=== PATIENT | male | born 1965 ===

== ENCOUNTER → 2024-08-06 14:47 | Outpatient (REF) | payer BC, SELFPAY ==
[2024-08-06 17:11] LABS: INR 1.03; PT 13.8 Sec (11.4-14.6)
[2024-08-06 17:16] LABS: ALT (SGPT) 31 U/L (0-50); AST (SGOT) 35 U/L (17-59); Alkaline Phosphatase 85 U/L (38-126); Blood Urea Nitrogen 16 mg/dl (9-20); Calcium 9.6 mg/dl (8.4-10.2); Carbon Dioxide 29 mmol/L (22-30); Chloride 104 mmol/L (98-107); Glucose 99 mg/dl (70-99); Potassium 4.6 mmol/L (3.5-5.1); Sodium 141 mmol/L (135-145); Total Bilirubin 0.6 mg/dl (0.2-1.3); Total Protein 7.5 g/dl (6.3-8.2); eGFR > 60.00
[2024-08-06 17:36] LABS: % Basophils 1.1 % (0-2); % Eosinophils 2.2 % (0-6); % Immature Granulocytes 0.2 % (0-0.5); % Lymphocytes 32.1 % (20.5-51.1); % Monocytes 12.8 % (1.7-9.3); % Neutrophils 51.6 % (42.2-75.2); Absolute Basophils 0.1 10^3/uL (0-0.2); Absolute Eosinophils 0.3 10^3/uL (0-0.7); Absolute Lymphocytes 4.3 10^3/uL (1.2-3.4); Absolute Monocytes 1.7 10^3/uL (0.1-0.6); Absolute Neutrophils 6.9 10^3/uL (1.4-6.5); Hematocrit 40.9 % (39.0-52.0); Hemoglobin 14.2 g/dL (13.0-18.0); Mean Corp Hgb Conc. 34.7 g/dL (33.0-37.0); Mean Corpuscular Volume 95.1 fL (80.0-94.0); Nucleated Red Blood Cells % 0 % (-); Red Cell Dist. Width 12.8 % (11.5-14.5); White Blood Cell Count 13.3 10^3/uL (4.8-10.8)
[2024-08-06 17:55] LABS: Hepatitis B Surface Antigen Negative (Negative)
[2024-08-06 18:09] LABS: AFP Male/Tumor Marker 4.41 ng/ml
[2024-08-06 18:14] LABS: Hepatitis B Core Ab, Total Negative (Negative); Hepatitis B Surface Antibody Negative; Hepatitis C Antibody Reactive (Negative)
== END ==
LOC: REG 14:47
PROVIDERS: ATTENDING PHYSICIAN Orthopaedic Surgery; FAMILY PHYSICIAN Family Medicine; OTHER PHYSICIAN Internal Medicine Gastroenterology
DX: Z86.19 Personal history of other infectious and parasitic diseases (principal); Z12.11 Encounter for screening for malignant neoplasm of colon; Z01.818 Encounter for other preprocedural examination
CPT/HCPCS: 36415; 80053; 82105; 85025; 85610; 86704; 86706; 86803; 87340; 87522; 87902; 93005

== ENCOUNTER → 2024-08-26 17:21 | Emergency (ER) | payer OTHER, SELFPAY ==
[2024-08-26 17:26] VITALS: BP 142/107
[2024-08-26 17:33] VITALS: BP 157/94
[2024-08-26 17:45] VITALS: BP 179/145
[2024-08-26] MEDS: ATIVAN 2 MG IV (17:49)
[2024-08-26] MEDS: NSS 500 IV (17:50)
[2024-08-26 18:06] VITALS: BP 176/92
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
[2024-08-26] MEDS: ATIVAN 1 MG IV (18:07)
[2024-08-26 18:08] LABS: Hematocrit 37.5 % (39.0-52.0); Hemoglobin 13.4 g/dL (13.0-18.0); Mean Corp Hgb Conc. 35.7 g/dL (33.0-37.0); Mean Corpuscular Hgb 33.1 pg (27.0-31.0); Mean Corpuscular Volume 92.6 fL (80.0-94.0); Mean Platelet Volume 11.9 fL (7.4-10.4); Platelet Count 185 10^3/uL (130-400); Red Blood Cell Count 4.05 10^6/uL (4.70-6.10); Red Cell Dist. Width 12.5 % (11.5-14.5); White Blood Cell Count 25.3 10^3/uL (4.8-10.8)
[2024-08-26 18:13] LABS: Glucose - Point of Care 136 mg/dl (70-99)
[2024-08-26 18:18] LABS: AST (SGOT) 53 U/L (17-59); Acetaminophen < 10 ug/ml (10-30); Albumin 4.5 g/dl (3.5-5.0); Alkaline Phosphatase 130 U/L (38-126); Blood Urea Nitrogen 23 mg/dl (9-20); Carbon Dioxide 24 mmol/L (22-30); Chloride 109 mmol/L (98-107); Glucose 145 mg/dl (70-99); Potassium 3.9 mmol/L (3.5-5.1); Salicylate < 1.0 mg/dl (2.0-20.0); Sodium 143 mmol/L (135-145); Total Bilirubin 1.5 mg/dl (0.2-1.3); Total Protein 8.4 g/dl (6.3-8.2); eGFR > 60.00
[2024-08-26 18:19] LABS: Alcohol None Detected
[2024-08-26 18:27] LABS: ALT (SGPT) 39 U/L (0-50)
--- NOTE | 2024-08-26 19:09 | EDRN ---
Report received, patient back from CT hooked back up to monitor introduced myself to family
== END ==
LOC: EMR 17:21
PROVIDERS: Emergency Medicine
DX: R41.82 Altered mental status, unspecified (principal); R45.1 Restlessness and agitation
CPT/HCPCS: 99284; 96374; 96361; 70450; 80053; 80143; 80179; 82077; 82962; 83735; 85027; 93005

== ENCOUNTER 2024-08-26 22:06 | Inpatient (IN) | payer BC, SELFPAY ==
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
--- NOTE | 2024-08-26 21:14 | HPS.HSE ---
Family Physician
-
Family Physician: Kamryn Arreguin
Chief Complaint
-
Confusion
History of Present Illness
Patient is a 59 y/o male past medical history of hypertension, hepatitis C and IV drug abuse who presents with confusion. Patient is unable to provide any history. Patient's provides additional history. Patient and his were attending a
wedding yesterday about 3-4 hours away so they spent last night in a hotel. found patient on the floor in the middle of night with notable confusion. Patient continued with confusion today while they were coming home. Due to persistent
confusion she brought him to the emergency department. notes patient has been very tremulous, sneezing and yawning frequently. She notes this seems similar to when he has gone throughout withdrawal in past except he is much more confused.
notes patient hides his drug use and will deny using when confronted.
Medical History
Past Medical History
Past Medical History: Reports Other
Additional Past Medical History:
Essential Hypertension
GERD
Hepatitis C
IV Drug Abuse
Past Surgical History: Reports Other
Additional Past Surgical History:
Splenectomy
Multiple Fracture Repairs
Social History
Tobacco: Smoker
Alcohol: None
Drug: IVDA (Fentanyl )
Family History
Family History: Not pertinent
Allergies / Home Medications
Allergies reflects when Allergies were last updated in [facility]
Home Medications with original date entered in [facility]
Allergy/Medication List:
Allergies
Allergy/AdvReac Type Severity Reaction Status Date / Time
No Known Allergies Allergy Unverified 08/22/24 09:18
Home Medications
amlodipine 10 mg tablet 10 mg PO DAILY 08/26/24
benazepril 40 mg tablet 40 mg PO DAILY 08/26/24
sumatriptan succinate 100 mg tablet 100 mg PO DAILYPRN PRN Migraine Headache 08/26/24
zolpidem 10 mg tablet 10 mg PO HSPRN PRN Insomnia 08/26/24
Review of Systems
-
Unable to obtain full review of systems at this time due to: Acuity
Physical Exam
Vital Signs
Vital Signs
Pulse Resp
97 13
08/26/24 20:23 08/26/24 20:23
Temp 98.2
Pulse 96
BP 142/107
Resp 16
Physical Exam
General: Well Developed, Well Nourished, Appears in Distress (Very tremulous) and Other (Frequent Yawning)
HEENT: NormoCephalic, Anicteric and Atraumatic
Respiratory: Clear and Non Labored Respirations
Cardiac: S1/S2, Regular Rhythm, Tachycardia and Murmur (2/6 Systolic Murmur)
GI: Soft and Non Tender
Rectal: Deferred by Provider
Musculoskeletal: No Clubbing, No Cyanosis and No Edema
Skin: Warm and Dry
Neuro: Other (Follows some commands; Appears to move all four extremities; Does not answer questions)
Laboratory Results
-
WBC 25.3
Hgb 13.4
Hct 37.5
Plt 185
Na 143
K 2.9
Cl 109
CO2 24
BUN 23
Cr 0.7
Glu 145
Mag 2.0
T Bili 1.5
AST 53
ALT 39
Alk Nils 130
Alcohol Non-detected
Head CT:
No acute intracranial abnormality
Data Reviewed
-
CT Scan: Report Reviewed by me
Lab Data: Labs Reviewed by me
Impression/Plan
-
Multi-Factorial TME secondary to suspected opioid withdrawal and possible sepsis
-Check urine drug screen
-Continue opioid withdrawal protocol
-Check CXR
-Check Blood Cultures
-Check Lactic Acid level
-Continue Vancomycin and Zosyn
Essential Hypertension
-Hold all oral meds
Hepatitis C
- notes patient has been treated previously but recent blood work showed high viral load and they were arranging for treatment again
DVT proph: Lovenox
Code Status: Full Code
[2024-08-26 21:23] VITALS: BMI 20.6
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
[2024-08-26 22:11] VITALS: BP 153/90
[2024-08-26] MEDS: FLUSH (NSS) 1 FLUSH IV (22:13)
[2024-08-26] MEDS: ZOSYN 50 IV (22:14)
--- NOTE | 2024-08-26 22:15 | EDRN ---
Prior to giving patient oral tylenol, made sure patient was able to swallow water without difficulty.
[2024-08-26] MEDS: TYLENOL 1000 MG PO (22:28)
[2024-08-26] MEDS: VANCOCIN 530 MG IV (22:31)
[2024-08-26] MEDS: NSS 1000 IV (22:31)
[2024-08-26 22:32] LABS: Lactic Acid 1.3 mmol/L (0.7-2.0)
[2024-08-26 22:33] LABS: Amphetamines Negative (Negative); Barbiturates Negative (Negative); Benzodiazepines Positive (Negative); Buprenorphine Positive (Negative); Cocaine Negative (Negative); Marijuana Positive (Negative); Methadone Negative (Negative); Methamphetamines Negative (Negative); Opiates Positive (Negative); Phencyclidine Negative (Negative); Tricyclic Antidepressants Negative (Negative)
[2024-08-26] MEDS: SUBUTEX 8 MG SL (22:36)
[2024-08-26 22:57] LABS: Fentanyl, Urine Positive (Negative)
[2024-08-26 23:00] VITALS: BP 154/108
[2024-08-26 23:05] LABS: Urine Albumin 2+ (Neg - Trace); Urine Bilirubin Negative (Negative); Urine Character Clear (Clear); Urine Color Amber; Urine Glucose Negative (Negative); Urine Ketone 1+ (Negative); Urine Leukocyte Negative (Negative); Urine Nitrite Negative (Negative); Urine Occult Blood 1+ (Negative); Urine Urobilinogen Negative (Neg - 1+)
[2024-08-26 23:13] LABS: Urine Hyaline Cast 0-2 /LPF (0-2); Urine Mucus Moderate; Urine Squamous Cell 0-2 /LPF (Few)
[2024-08-26 23:14] LABS: Urine Bacteria Few (Negative); Urine Red Blood Cell 0-2 /HPF (0-2); Urine White Cell 0-2 /HPF (0-5)
[2024-08-27] VITALS (54 sets, daily range): BP systolic 150–192; BP diastolic 82–112; BMI 20.9; BMI 20.7
[2024-08-27] MEDS: ZANAFLEX 2 MG PO (00:07)
[2024-08-27] MEDS: SUBUTEX 8 MG SL ×2 (00:07→01:40)
[2024-08-27] MEDS: TORADOL 10 MG IV (00:08)
--- NOTE | 2024-08-27 01:00 | PTCARENOTE ---
Received verbal report from ESTEBAN Breaux. Pt arrived to IMU via stretcher with at bedside. Sinus arrhythmia on monitor. Satting 98% on RA. NS infusing @ 125 mL/hr. Pt oriented only to self and provides occasional one word answers. assisted
with answering admission questions. Subutex administered for COWS of 23 (see MAR and worklist). Admission complete, assessment and vitals as documented. Hygiene completed. Pt resting in bed with bed alarm on.
[2024-08-27] MEDS: BENADRYL 6.25 MG IV (02:49)
[2024-08-27] MEDS: NSS (PRESERVATIVE FREE) 0.5 ML IV ×2 (03:22→04:26)
[2024-08-27] MEDS: ATIVAN 1 MG IV ×3 (03:22→20:45)
--- NOTE | 2024-08-27 03:51 | PTCARENOTE ---
Pt agitated and repeatedly attempts to get out of bed and take everything off. KIM Puga notified and Rx for restraints received as a protective intervention. COWS remains >8 after two doses of subutex (see worklist and JUN). Blood pressure is
173/95. KIM Puga made aware and Rx received for clonidine and Ativan.
[2024-08-27] MEDS: CATAPRES 0.1 MG PO ×2 (04:04→20:05)
[2024-08-27] MEDS: ATIVAN 2 MG IV (05:13)
[2024-08-27] MEDS: NSS (PRESERVATIVE FREE) 1 ML IV (05:13)
--- NOTE | 2024-08-27 05:41 | W.PN.UPDATE ---
Update Note
Progress Note Update
Patient is agitated, restless with increased of tremors, trying to get out of bed frequently. Received Tizanidine, clonidine PRN, frequent dose of Ativan and not effective. Cows >24.
Will transfer the patient to ICU for possible Precedex administration. Discussed with the tree wrapper.
[2024-08-27 05:59] LABS: Blood Urea Nitrogen 23 mg/dl (9-20); Calcium 9.1 mg/dl (8.4-10.2); Carbon Dioxide 22 mmol/L (22-30); Chloride 114 mmol/L (98-107); Estimated Creatinine Clearance 108 ml/min; Glucose 119 mg/dl (70-99); Magnesium 1.9 mg/dl (1.6-2.3); Potassium 3.9 mmol/L (3.5-5.1); Sodium 145 mmol/L (135-145); eGFR > 60.00
--- NOTE | 2024-08-27 06:14 | PTCARENOTE ---
Verbal report provided to ESTEBAN Ball. Pt transferred to ICU in bed. All belongings with patient.
--- NOTE | 2024-08-27 06:28 | PTCARENOTE ---
Received pt from IMU to ICU [id number]. Pt agitated, restless, uncooperative. Unable to interact with staff. Garbled a few words. COWS = 28. Wrist restraints maintained. ROSITA Hassan aware of behavior. Precedex gtt started and 10mg IV valium ordered and
administered. Bladder scanned for 249 ml. Condom cath placed.
[2024-08-27] MEDS: VALIUM INJECTION 10 MG IV (06:31)
[2024-08-27] MEDS: PRECEDEX 100 IV ×3 (06:32→19:14)
[2024-08-27 06:51] LABS: Glucose - Point of Care 124 mg/dl (70-99)
[2024-08-27] MEDS: NSS 1000 IV (07:15)
--- NOTE | 2024-08-27 07:26 | PHA.VAN.IN ---
Assessment
- Assessment
Renal Function: Appears similar to baseline
Maximum Temperature: 101.0 08/26 23:41
AUC Dosing Plan
- Dosing Variables
Dosing Weight (kg): 69
Dosing CrCl (ml/min): 100
Vd coefficient (L/kg): 0.7
- Empiric Dosing
Initial / Loading Dose: 1500 mg - 2230 on 08/26/24
Maintenance Regimen: 750 mg q8h - first dose now ( 0800)
Estimated AUC (mcg*h/mL): 556
Estimated Peak (mcg*h/mL): 30.9
Estimated Trough (mcg/ml): 16.7
Estimated Half Life (H): 7.9
- Monitoring
No levels ordered at this time: consider levels when pt nears ss
would expect increased clearance due to hx of IVDA
Pharmacokinetics Vancomycin I
- -
Patient Age: 59
Patient Sex: Male
Vancomycin Day #: 1
Indication: Other
Requesting Provider: Williey
Height / Weight:
Height 6 ft
Actual Weight 69.1 kg
Pertinent Past Medical History: IVDA (fentanyl); Hep C
- Vital Signs / Lab Results
Temp Pulse Resp BP Pulse Ox
99.1 F 96 26 162/88 94
08/27/24 05:25 08/27/24 04:04 08/27/24 04:02 08/27/24 04:04 08/27/24 06:20
Lab Results - Hematology
08/27/24
05:09
WBC Cancelled
Lab Results - Chemistry
08/27/24 08/27/24
05:09 06:00
BUN 23 H
Creatinine 0.7
Estimated Creat Clear 108
Albumin Cancelled
08/26/24 08/27/24
21:59 01:00
Lactic Acid 1.3 Cancelled
Lab Results - Urine
08/26/24
21:59
Urine Nitrite (Reflex) Negative
Leukocyte Esterase Rfl Negative
Urine WBC (Reflex) 0-2
Ur Squamous Epith Cells 0-2
Urine Bacteria (Reflex) Few A
--- NOTE | 2024-08-27 08:00 | PTCARENOTE ---
Pt rec'd in report from night RN; remains slightly restless and uncooperative. Garbled, soft spoken, minimal interaction with nursing, current COWS score 11. Soft restraints in place for safety. Precedex gtt infusing -titrated per protocol...see
MAR for flowsheet. IVF infusing as ordered. Additional IV site placed by CHRISTI RN Min, labs drawn and sent. ECG done. updated by phone, plan discussed in rounds with care team. See flowsheet for meds and assessment.
--- NOTE | 2024-08-27 08:24 | W.PN.HOSP.TC ---
Today's Communication/Plan
-
Total Critical Care Time__45___ minutes. I was immediately available to the patient and staff. I personally examined, reviewed labs, diagnostic images/reports, interpretations, treatment plans, discussed patient care with other providers and
family or caregivers (if patient is unable to make decisions), entered orders as appropriate and documented the medical record.
Assessment / Plan
Assessment / Plan
Impression:
Toxic metabolic encephalopathy secondary to opioid withdrawal.
SIRS secondary to above.
Concern for sepsis (febrile on admission)
Interstitial infiltrate
Conditions prior to admission,
Opiate use disorder (reported IV fentanyl)
Hepatitis C untreated.
Essential hypertension
Plan:
Toxic metabolic encephalopathy secondary to opioid withdrawal.
Polysubstance abuse suspected.
IVDA Fentanyl
Urine drug screen positive for opiates, buprenorphine, fentanyl, benzodiazepine, marijuana
Transferred to ICU.
Initiated on opioid withdrawal protocol with Subutex
Precedex drip
Aggressive hydration
Concern for sepsis versus SIRS secondary to opioid withdrawal
IVDA
Febrile on admission with
Chest x-ray with mild pulmonary congestion without focal infiltrate.
UA unremarkable.
Blood cultures pending
Empiric antibiotics vancomycin, Zosyn initiated upon admission. Continue pending above data
Pulmonary congestion on chest x-ray.
Stable respiratory status
EKG without ischemia
No known history of cardiac disease including CAD/CHF
EKG pending
Echo pending
Check pressure check BNP
Monitor closely while on IV fluids
Hepatitis C untreated
LFT pending
Ammonia level pending
Essential hypertension
Preadmission regimen including amlodipine and BenzePrO holding acutely
Insomnia
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
Anticipated Discharge: > 48 hours
Subjective/Interval History
-
Date of Service: August 27, 2024
Objective Data
-
Labs:
Laboratory Results
08/27/24 08/27/24 08/27/24
05:09 05:46 07:34
WBC Cancelled Pending
Hgb Cancelled Pending
Hct Cancelled Pending
Plt Count Cancelled Pending
PT Pending
INR Pending
APTT Pending
Sodium 145
Potassium 3.9
Chloride 114 H
Carbon Dioxide 22
BUN 23 H
Creatinine 0.7
Glucose 119 H
Calcium 9.1
Total Bilirubin Pending
AST Pending
ALT Pending
Alkaline Phosphatase Pending
Vital Signs:
Vital Signs
Temp Pulse Resp BP Pulse Ox
98.9 F 96 26 162/88 94
08/27/24 08:09 08/27/24 04:04 08/27/24 04:02 08/27/24 04:04 08/27/24 06:20
I&O
08/26/24 08/27/24 08/28/24
06:59 06:59 06:59
Output Total 700 / 700
Balance -700 / -700
Physical Exam
-
General: Well Developed, No Apparent Distress and Sweats
HEENT: Normocephalic, Atraumatic and Moist Mucous Membranes
Respiratory: Clear to Auscultation
Cardiac: Regular Rhythm and S1/S2; Negative Murmur, Rub or Gallop
GI: Soft, Nontender, Nondistended and Normal Bowel Sounds; Negative Organomegaly
Rectal: Deferred by Provider
Musculoskeletal: No Clubbing, No Cyanosis and No Edema
Skin: Negative Rash
Neuro: Sedated and Nonfocal/Grossly Intact
--- NOTE | 2024-08-27 08:36 | CON.INTV ---
Consultation
Consultation Request
Date/Time Consultation Requested: 08/27/2024
Date/Time Consultation Performed: 08/27/2024
Medical History
-
Chief Complaint: Opioid withdrawal with associated confusion and agitation
History of Present Illness:
59-year-old male past med history of hypertension, hep C, IV drug abuse, longstanding fentanyl presented to [place] emergency department after attending a wedding where he was noted to be found on the floor in the middle of the night with
confusion. Patient was confused on the drive home and has persistent confusion prompted visit to the ED. notes patient was tremulous, sneezing and yawning frequently. She notes he had had episodes of withdrawal in the past however he is more
confused during this episode. notes patient will hide his drug use and deny using when confronted. He was admitted placed on COWS protocol with as needed medications. Patient was initiated on broad-spectrum antibiotics for concern for
potential endocarditis, ID consult placed. No sequelae of endocarditis, patient did have tachycardia and tachypnea, hypertensive, febrile on admission. Labs pending at time of admission. No source known, chest x-ray normal, urinalysis no signs of
infection, currently afebrile. Urine positive for opiates, buprenorphine, fentanyl, benzodiazepine, marijuana. He had an episode overnight where he was agitated trying to get out of bed he was unable to be controlled with medications per COWS
protocol, and he was transferred to the ICU for Precedex infusion.
Past Medical History
Past Medical History: HTN and Other (IV drug abuse, longstanding IV fentanyl. Hep C)
Social History
Tobacco: Smoker
Alcohol: None
Drug: IVDA (Fentanyl)
Personal:
Allergies / Home Medications
Allergies
Allergy/AdvReac Type Severity Reaction Status Date / Time
No Known Allergies Allergy Unverified 08/22/24 09:18
Home Medications
�Medication �Instructions �Recorded �Confirmed �Last Taken �Type
amlodipine 10 mg tablet 10 mg PO DAILY 08/26/24 08/26/24 Unknown History
benazepril 40 mg tablet 40 mg PO DAILY 08/26/24 08/26/24 Unknown History
sumatriptan succinate 100 mg tablet 100 mg PO DAILYPRN PRN Migraine 08/26/24 08/26/24 Unknown History
Headache
zolpidem 10 mg tablet 10 mg PO HSPRN PRN Insomnia 08/26/24 08/26/24 Unknown History
Review of Systems
-
Unable to Obtain full review of systems at this time due to: Other (Patient withdrawing, not participating in review of systems. Is alert but not oriented. Incoherent speech.)
Vitals / Labs / Diagnostic Testing
Vital Signs
Temp Pulse Resp BP Pulse Ox
98.9 F 96 26 162/88 94
08/27/24 08:09 08/27/24 04:04 08/27/24 04:02 08/27/24 04:04 08/27/24 06:20
Lab Data
08/27/24 05:09
Diagnostic Testing:
Physical Exam
-
Cardiovascular: S1/S2, Regular Rhythm (Tachycardic) and Murmur (Negative)
Respiratory: Clear
Neurology: Awake and Other (Not alert, not oriented, incoherent speech.)
Skin: Other (Track polk and fibrotic scar tissue present on bilateral lower and upper extremities.)
Assessment
-
Assessment:
59-year-old male past medical history of IV drug abuse with fentanyl, hep C, hypertension presents to [place] for confusion, agitation and drug withdrawal. Patient was placed on COWS protocol which was not sufficient and he required Precedex for
light sedation and subsequently was transferred to the ICU. Was started on antibiotics for concern of endocarditis.
Plan:
#Opiate withdrawal
#IV drug abuse
#Acute toxic metabolic encephalopathy
Likely altered mental status is secondary to opiate withdrawal. Patient has bilateral track polk on upper and lower extremities.
UDS positive for opiates, buprenorphine, fentanyl, benzodiazepine, THC
Currently patient is alert but not oriented, incomprehensible speech. Not participating in interview and attempting to get up out of bed
Electrolytes are within normal limits, magnesium within normal limits, ammonia within normal limit
Was placed on COWS protocol with as needed medications, these were not sufficient to control his withdrawal/agitation and he required transfer to the ICU for Precedex infusion
Added as needed IV Ativan 0.5 every 4 hours for agitation
Continue Precedex as needed, down titrate as tolerated
Continue as needed medications on COWS protocol
Added IV Tylenol for pain
Added standing IV Dilaudid and as needed IV Dilaudid
Continue buprenorphine scheduled and as needed
Continue with four-port restraints as patient is attempting to get up and is not oriented
Continue IV fluids for now, will stop IV fluids later tonight
Currently holding p.o. medications as patient is n.p.o., will restart once n.p.o. status lifted
#SIRS criteria without source
Patient was started on broad-spectrum IV vancomycin and Zosyn for potential endocarditis as he uses IV drugs
Infection not ruled out
White count returned 29.6, blood cultures x 2 pending, MRSA screen pending
No sequelae of endocarditis present
Echocardiogram pending, EKG showed no ischemia
Patient meets SIRS criteria with tachycardia and tachypnea however he is withdrawing from opiates, no source noted on chest x-ray, urinalysis negative for markers of infection, patient was febrile on admission, now afebrile. Suspicion for infection
is low.
ID consulted on admission
Will defer antibiotic management to infectious disease
#Hypertension
Patient is on home amlodipine, currently being held as patient is n.p.o.
Hypertension likely exacerbated by opioid withdrawal, patient also tachycardic
Added IV labetalol 5 every 4 hours as needed for SBP greater than 160 and heart rate greater than 90
Restart home antihypertensive once patient is no longer n.p.o.
CODE STATUS: full code
DVT prophylaxis: Subcu Lovenox 40
Diet: N.p.o.
[2024-08-27 08:45] LABS: ALT (SGPT) 31 U/L (0-50); AST (SGOT) 55 U/L (17-59); Albumin 3.9 g/dl (3.5-5.0); Alkaline Phosphatase 108 U/L (38-126); Direct Bilirubin 0.3 mg/dl (0.0-0.4); Total Bilirubin 1.3 mg/dl (0.2-1.3); Total Protein 7.2 g/dl (6.3-8.2)
[2024-08-27 09:10] LABS: Hematocrit 34.2 % (39.0-52.0); Mean Corp Hgb Conc. 35.1 g/dL (33.0-37.0); Mean Corpuscular Hgb 32.7 pg (27.0-31.0); Mean Corpuscular Volume 93.2 fL (80.0-94.0); Mean Platelet Volume 11.7 fL (7.4-10.4); Platelet Count 164 10^3/uL (130-400); Red Blood Cell Count 3.67 10^6/uL (4.70-6.10); Red Cell Dist. Width 12.9 % (11.5-14.5); White Blood Cell Count 29.6 10^3/uL (4.8-10.8)
[2024-08-27 09:28] LABS: Ammonia 12 umol/L (9-30)
[2024-08-27 09:41] LABS: NT-proBNP 6700 pg/ml
[2024-08-27] MEDS: VANCOCIN 150 IV (10:12)
--- NOTE | 2024-08-27 10:22 | CON.ID ---
Consultation
-
Date/Time Consultation Requested: August 26, 20248
Date/Time Consultation Performed: August 27, 2024 1025
Requesting Provider: Anni Villalpando PA-C
Performing Provider: Dr. Mary Isbell
Reason for Consultation: Sepsis, IV drug use, asplenia
Chief Complaint / Past History
Chief Complaint
Confusion
History of Present Illness
History is obtained from review of medical records since patient currently unable to provide a full meaningful history. He is a 59-year-old male IV drug user, active hepatitis C, history of splenectomy who was brought to the ER August 26 due to change
in mental status. Patient and his were away for the holiday weekend. His found the patient on the hotel floor in the middle of the night. Patient was very confused. His drove back and brought him to the ER. On the way back,
noted patient with tremors, frequent sneezing and yawning. In the ER temperature 101, white count 29.6 urine drug screen positive fentanyl, buprenorphine, opiates, marijuana, benzodiazepine. Chest x-ray without pneumonia; mild vascular congestion.
BNP 6700. UA negative. Blood cultures pending. Patient continues to have tremors. He is currently in restraints. Patient agitated. Patient unable to answer my questions.
Past History
Additional Past Medical History:
Hypertension
IV drug user
Active hepatitis C, previously treated, with reinfecion
Splenectomy
Migraine headaches
BPH
Left knee osteoarthritis
Insomnia
Right clavicle ORIF
Allergy History:
No Known Allergies Allergy (Unverified 08/22/24 09:18)
Medications Reviewed: Yes
Current Antibiotics:
Vancomycin
Zosyn
Social History
Tobacco: Smoker
Alcohol: None
Drug: IVDA (Fentanyl)
Personal:
Living: With Family
Review of Systems
Review of Systems
Unable to obtain due to change in mental status.
Vital Signs
Temp Pulse Resp BP Pulse Ox
98.9 F 88 19 180/92 98
08/27/24 08:09 08/27/24 10:00 08/27/24 10:00 08/27/24 10:00 08/27/24 10:00
Selected Entries
08/26/24
22:11 08/26/24
23:41
Temp 101.0 F H 100.4 F H
Physical Exam
Physical Exam
Constitutional: Acutely Ill and Other (Diaphoretic)
Head: Other (No frontal or max or sinus tenderness)
Eyes: No Conjunctival Hemorrhage and Sclera Anicteric
Lymph Nodes: Negative Lymphadenopathy
Cardiovascular: Regular Rate and S1/S2
Pulmonary: Clear
Gastrointestinal: Soft, Non Tender, Non Distended and Normal Bowel Sounds
Genito-Urinary: Negative CVA Tenderness
Extremities: Negative Edema
Musculoskeletal: Negative Joint Swelling or Joint Effusion
Skin: Negative Jaundice
Neurological: Tremors and Other
Psychological: Agitated
Lab / Diagnostic Study Results
08/27/24 08:57
08/27/24 05:09
PT Cancelled 08/27/24 08:54
INR Cancelled 08/27/24 08:54
Lactic Acid Cancelled 08/27/24 01:00
Ur Squamous Epith Cells 0-2 /LPF (Few) 08/26/24 21:59
Microbiology Results
Micro:
08/27/24 05:09 MRSA Screen - Pending
Nose
08/26/24 21:59 Blood Culture - Pending
Blood/Venous
08/26/24 21:59 Blood Culture - Pending
Blood/Venous
08/26/24 CXR: No focal consolidation, pleural effusion, or pneumothorax. Prominence of the pulmonary vascular markings. The cardiomediastinal silhouette is normal. ORIF of the right clavicle. Surgical clips project over the left upper quadrant.
Assessment / Plan
# Fever
# Leukocytosis
# IVDU
# Fentanyl Withdrawal syndrome
# History of splenectomy
# Chronic Hep C (reinfection)
- Follow blood cultures.
- ECHO pending
- DC Vanco
- Continue Zosyn for now pending cx data.
- Trend temps/WBC
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
Hypertension
IV drug user
Active hepatitis C, previously treated, with reinfecion
Splenectomy
Migraine headaches
BPH
Left knee osteoarthritis
Insomnia
Right clavicle ORIF
[2024-08-27 10:45] LABS: INR 1.28; PT 16.3 Sec (11.4-14.6)
[2024-08-27 10:46] LABS: APTT 28.8 Sec (23.4-35.0)
[2024-08-27] MEDS: OFIRMEV 100 IV (12:26)
[2024-08-27] MEDS: DILAUDID 0.5 MG IV ×3 (12:27→23:55)
[2024-08-27] MEDS: TRANDATE 5 MG IV ×3 (13:09→22:04)
--- NOTE | 2024-08-27 13:54 | CM ---
business system manager reviewed patient's chart and met with patient and patient is extremely sleepy difficult to understand, patient reports that he lives with his spouse, and he works, patient is independent with adl's and ambulation, no dme, patient
drives, asked patient about drug use and possible treatment options and patient unable to engage in any meaningful discussion on treatment due to withdrawal. Plan is to review with patient possible treatment options through [facility] when patient is
more alert.
PCP: Kamryn Arreguin
Pharmacy; [facility].
Plan; To follow with eboni progress and make a referral to [facility], when patient is more alert.
--- NOTE | 2024-08-27 16:22 | PTCARENOTE ---
Echo completed. PRN Labetalol given per parameters for continued HTN after scheduled Dilaudid and Tylenol. Pt voiding via condom cath, safe environment maintained. Family remains at bedside.
[2024-08-27] MEDS: OFIRMEV IV ×2 (17:03→23:12)
[2024-08-27] MEDS: LOVENOX 40 MG SC (17:16)
--- NOTE | 2024-08-27 17:23 | PTCARENOTE ---
PRN Labetalol again administered for HTN per parameters, see MAR> Pt resting calmly. PTs declines Ofirmev administration d/t pt hx of liver disease. notified.
--- NOTE | 2024-08-27 20:22 | PTCARENOTE ---
Rec'd pt with 4 point soft restraints, pt oriented to person, place, reoriented to time, denies pain, precedex gtt at 0.8 priya, COWS 5, + pulses, no edema, skin warm/dry, RA, lungs clear, sat 97, + bowel sounds, no bm, abd soft, no n/v, casper po meds,
330 condom cath intact, voiding yellow urine
[2024-08-27] MEDS: NORVASC 10 MG PO (20:46)
[2024-08-27] MEDS: ZESTRIL 40 MG PO (20:47)
--- NOTE | 2024-08-27 20:51 | PTCARENOTE ---
ativan 1mg iv given for agitation, norvasc zestril started for BP
--- NOTE | 2024-08-27 22:06 | PTCARENOTE ---
labetolol 5mg iv given for bp
[2024-08-28] VITALS (34 sets, daily range): BP systolic 138–185; BP diastolic 70–109; PULSE 77–84; O2SAT 98; BMI 21.0
--- NOTE | 2024-08-28 | PTCARENOTE ---
sys reviewed, CHG bath done, linens changed
[2024-08-28] MEDS: ZANAFLEX 2 MG PO ×2 (00:32→08:46)
--- NOTE | 2024-08-28 00:32 | PTCARENOTE ---
zanaflex 2mg po given for restlessness
[2024-08-28] MEDS: PRECEDEX 100 IV ×2 (01:08→09:26)
[2024-08-28] MEDS: ATIVAN 1 MG IV (02:21)
--- NOTE | 2024-08-28 02:22 | PTCARENOTE ---
ativan 1mg iv given for restlessness
[2024-08-28 03:47] LABS: Hematocrit 33.8 % (39.0-52.0); Hemoglobin 11.9 g/dL (13.0-18.0); Mean Corp Hgb Conc. 35.2 g/dL (33.0-37.0); Mean Corpuscular Hgb 33.2 pg (27.0-31.0); Mean Corpuscular Volume 94.4 fL (80.0-94.0); Mean Platelet Volume 11.7 fL (7.4-10.4); Red Blood Cell Count 3.58 10^6/uL (4.70-6.10); Red Cell Dist. Width 13.2 % (11.5-14.5); White Blood Cell Count 29.2 10^3/uL (4.8-10.8)
--- NOTE | 2024-08-28 04:09 | PTCARENOTE ---
sys reviewed, dozing on & off
[2024-08-28 04:29] LABS: ALT (SGPT) 29 U/L (0-50); AST (SGOT) 46 U/L (17-59); Albumin 3.5 g/dl (3.5-5.0); Alkaline Phosphatase 103 U/L (38-126); Blood Urea Nitrogen 26 mg/dl (9-20); Calcium 8.7 mg/dl (8.4-10.2); Carbon Dioxide 24 mmol/L (22-30); Chloride 117 mmol/L (98-107); Estimated Creatinine Clearance > 125 ml/min; Glucose 123 mg/dl (70-99); Potassium 3.4 mmol/L (3.5-5.1); Sodium 147 mmol/L (135-145); Total Protein 6.5 g/dl (6.3-8.2); eGFR > 60.00
[2024-08-28 04:48] LABS: Absolute Neutrophils -Man Diff 25.1 10^3/uL (1.4-6.5); Band Neutrophils 0 % (0-3); Lymphocytes 8 % (20-51); Monocytes 6 % (2-9); Normal RBC Morphology No; Platelets Checked Yes; Segmented Neutrophils 86 % (42-75); Total Cells Counted 100
[2024-08-28 04:51] LABS: Platelet Count 189 10^3/uL (130-400); Smudge Cells Occasional
[2024-08-28 04:52] LABS: Anisocytosis 1+; Macrocytosis 1+
[2024-08-28] MEDS: TRANDATE 5 MG IV ×2 (05:06→22:41)
[2024-08-28] MEDS: DILAUDID 0.5 MG IV (05:06)
[2024-08-28] MEDS: KCL 40 MEQ PO ×2 (05:06→18:36)
--- NOTE | 2024-08-28 05:10 | PTCARENOTE ---
labetolol 5mg iv given for bp, 40 kcl po given as ordered
[2024-08-28] MEDS: OFIRMEV IV (05:15)
[2024-08-28] MEDS: MIRALAX 17 GRAMS TUBE (07:17)
[2024-08-28] MEDS: ZESTRIL 40 MG PO (07:17)
[2024-08-28] MEDS: NORVASC 10 MG PO (07:17)
--- NOTE | 2024-08-28 08:41 | W.PN.INTV ---
Today's Communication / Plan
Recommendations
Potential downgrade to IMU/telemetry
Continue down titration of Precedex as tolerated
Continue as needed medications per COWS protocol and for opiate withdrawal
Initiate D5 water
Decrease lorazepam dose
Discontinue scheduled Dilaudid
PT/OT, speech eval
Assessment
-
Assessment:
59-year-old male past medical history of IV drug abuse with fentanyl, hep C, hypertension presents to [place] for confusion, agitation and drug withdrawal. Patient was placed on COWS protocol which was not sufficient and he required Precedex for
light sedation and subsequently was transferred to the ICU. Was started on antibiotics for concern of endocarditis.
Plan:
#Opiate withdrawal
#IV drug abuse
#Acute toxic metabolic encephalopathy
Likely altered mental status is secondary to opiate withdrawal. Patient has bilateral track polk on upper and lower extremities.
UDS positive for opiates, buprenorphine, fentanyl, benzodiazepine, THC
Patient alert but not oriented however improved from yesterday. He is no longer agitated and no longer attempting to get up out of bed. sleeping comfortably.
Ammonia within normal limit
Was placed on COWS protocol with as needed medications, these were not sufficient to control his withdrawal/agitation and he required transfer to the ICU for Precedex infusion
Precedex has been discontinued
Decrease IV lorazepam dose
Continue as needed medications on COWS protocol
Continue IV Tylenol for pain
Discontinued standing IV Dilaudid and continue as needed IV Dilaudid
Continue buprenorphine scheduled and as needed
Continue with 2 point restraints
IV fluids discontinued
Currently holding p.o. medications as patient is n.p.o., will restart once n.p.o. status lifted
Speech and swallow, PT OT ordered
Potential downgrade to IMU/telemetry if remains stable off Precedex
#Irregular heart rate
New irregular heart rate heard on exam and confirmed on monitor
Previous EKG had regular rhythm with PVCs
Potassium 3.4, magnesium within normal limits yesterday, added on magnesium lab today
P waves are present, rate mid to low 60s
Urgent EKG further evaluation
Echocardiogram yesterday showed normal systolic function and no regional wall abnormality. No vegetation noted on TTE
Daily CMP to monitor electrolytes
#Prolonged QTc
QTc returned 500 this morning
Patient is on multiple medications that can prolong QTC for his opiate withdrawal
Potassium 3.4 this morning status post repletion, magnesium within normal limits yesterday
Added on serum magnesium
Serial EKG in a.m. to monitor QTc
#Hypernatremia
Sodium returned 147 this morning, up from 145
Suspect component of dehydration, IV fluids were discontinued yesterday
Initiated D5 water 75 mL scheduled
#Hypokalemia
Potassium returned 3.4 this morning
Overnight covering provider ordered 40 mEq potassium repletion
Recheck CMP in a.m.
#SIRS criteria without source
Patient was started on broad-spectrum IV vancomycin and Zosyn for potential endocarditis as he uses IV drugs and is status post splenectomy
Infection not ruled out, blood cultures no growth in 24 hours, final culture pending. MRSA screen negative
White count still elevated 29.2, suspect this is reactive
No sequelae of endocarditis present
Echocardiogram returned no vegetation, no regional wall motion abnormality, normal systolic function
Patient meets SIRS criteria with tachycardia and tachypnea however he is withdrawing from opiates, no source noted on chest x-ray, urinalysis negative for markers of infection, patient was febrile on admission, now afebrile. Suspicion for infection
is low.
ID consulted on admission, discontinued vancomycin, continuing on Zosyn until blood cultures return. Appreciate recommendations. Defer antibiotic management to ID
#Hypertension
Patient is on home amlodipine, currently being held as patient is n.p.o.
Hypertension likely exacerbated by opioid withdrawal, patient also tachycardic
Added IV labetalol 5 every 4 hours as needed for SBP greater than 160 and heart rate greater than 90
Restart home antihypertensive once patient is no longer n.p.o.
CODE STATUS: full code
DVT prophylaxis: Subcu Lovenox 40
Diet: N.p.o.
Subjective Dataa
Subjective Data
Date of Service:
Date of Service: August 28, 2024
Chief Complaint: Hospital Carrier Follow Up
Subjective:
Nursing reports no events overnight, has been receiving all of his as needed medications but is stable. Precedex is currently being down titrated however he is still on it. Patient is somewhat somnolent, will respond to you but is unsure of why he
is in the hospital. When questioned he responds he is here as he is awaiting a total knee replacement. Patient slept through remainder of review of systems/interview.
Review of Systems
General: Other (Patient did not answer/did not want to answer review of systems)
Objective Data
Data Reviewed
Vital Signs / I&O / Oxygen:
Vital Signs
Temp Pulse Resp BP Pulse Ox
99 F 64 25 158/95 95
08/28/24 03:53 08/28/24 08:00 08/28/24 08:00 08/28/24 08:00 08/28/24 08:00
Intake and Output
08/27/24 08/28/24 08/29/24
06:59 06:59 06:59
Intake Total 1212.3 / 1226.1 267.6 / 267.6
Output Total 700 / 700 895 / 895
Balance -700 / -700 317.3 / 331.1 267.6 / 267.6
SaO2 95
Physical Exam
General: Comfortable
Cardiovascular: S1-S2, Irregular Rhythm (Irregular murmur heard on exam, confirmed on monitor. P waves present.) and Murmur (Negative)
Respiratory: Clear
Neurology: Other (Alert but not oriented to place.)
Skin: Other (Track polk present bilateral upper and lower extremities)
Labs/Micro/Reports
Lab Data
08/28/24 03:25
08/28/24 03:25
Laboratory Results
08/27/24 08/27/24
08:54 10:23
PT Cancelled 16.3 H
INR Cancelled 1.28
APTT Cancelled 28.8
Microbiology
08/27/24 05:09 Nose MRSA Screen - Final
No Methicillin Resistant Staphylococcus aureus isolated.
08/26/24 21:59 Blood/Venous Blood Culture - Preliminary
No Growth in 24 hours- Final report to follow
08/26/24 21:59 Blood/Venous Blood Culture - Preliminary
No Growth in 24 hours- Final report to follow
[2024-08-28] MEDS: SUBUTEX 16 MG SL (08:49)
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
--- NOTE | 2024-08-28 13:00 | PTCARENOTE ---
Pt impulsive but no longer agitated. Restraints removed. Precedex off. All other assessments unchanged.
[2024-08-28] MEDS: CATAPRES 0.1 MG PO ×2 (14:29→20:32)
[2024-08-28] MEDS: D5W 1000 IV (14:45)
[2024-08-28] MEDS: DILAUDID 1 MG IV (14:49)
--- NOTE | 2024-08-28 16:00 | DOWNTIME ---
There was a [facility] Client Weaving Loom Operator Downtime on 08/28/2024 from 1230 to 08/28/2024 at 1550. Downtime documentation of patient's care, including medication administrations, has been reconciled in the electronic record per guidelines. Refer to the
patient's paper chart under the miscellaneous tab to see printed paper medication records and downtime forms.
--- NOTE | 2024-08-28 16:21 | W.PN.HOSP.TC ---
Today's Communication/Plan
-
Precedex
Continue Subutex
COWS protocol
Monitor off of antibiotic
Discontinue Ativan
Discontinue scheduled Dilaudid
Assessment / Plan
Assessment / Plan
NAD, responding with eyes closed, on Precedex drip
Scleral Anicteric
MMM
No JVD
CTABL
RRR, S1/S2
Soft, NT, ND, BS+
Warm, Dry
AAOx3
Calm
Impression:
Toxic metabolic encephalopathy secondary to opioid withdrawal.
SIRS secondary to above.
Concern for sepsis (febrile on admission)
Interstitial infiltrate
Conditions prior to admission,
Opiate use disorder (reported IV fentanyl)
Hepatitis C untreated.
Essential hypertension
Plan:
Toxic metabolic encephalopathy secondary to opioid withdrawal.
Polysubstance abuse suspected.
IVDA Fentanyl
Urine drug screen positive for opiates, buprenorphine, fentanyl, benzodiazepine, marijuana
Transferred to ICU.
Initiated on opioid withdrawal protocol with Subutex
Precedex drip
Aggressive hydration
Concern for sepsis versus SIRS secondary to opioid withdrawal
IVDA
Febrile on admission with
Chest x-ray with mild pulmonary congestion without focal infiltrate.
UA unremarkable.
Blood cultures NGTD
Per ID hold off of Atb
Pulmonary congestion on chest x-ray.
Stable respiratory status
EKG without ischemia
No known history of cardiac disease including CAD/CHF
EKG pending
Echo pending
Check pressure check BNP
Monitor closely while on IV fluids
Hepatitis C untreated
LFT pending
Ammonia level pending
Hyponatremia likely secondary to a free water deficit
Initiated on D5 water
Repeat BMP in the afternoon
Essential hypertension
Preadmission regimen including amlodipine and BenzePrO holding acutely
Insomnia
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
Anticipated Discharge: > 48 hours
Subjective/Interval History
-
Date of Service: August 28, 2024
Seen and examined. No new complaints. No acute overnight events per
Objective Data
-
Labs:
Laboratory Results
08/28/24 08/28/24
03:25 16:16
Plt Count 189
Sodium 147 H Pending
Potassium 3.4 L Pending
Chloride 117 H Pending
Carbon Dioxide 24 Pending
BUN 26 H Pending
Creatinine 0.6 L Pending
Glucose 123 H Pending
Calcium 8.7 Pending
Total Bilirubin 1.0
AST 46
ALT 29
Alkaline Phosphatase 103
Vital Signs:
Vital Signs
Temp Pulse Resp BP Pulse Ox
98.6 F 76 25 173/99 97
08/28/24 12:00 08/28/24 15:00 08/28/24 15:00 08/28/24 15:00 08/28/24 12:00
I&O
08/27/24 08/28/24 08/29/24
06:59 06:59 06:59
Intake Total 1212.3 / 1226.1 842.6 / 842.6
Output Total 700 / 700 895 / 895 745 / 745
Balance -700 / -700 317.3 / 331.1 97.6 / 97.6
--- NOTE | 2024-08-28 16:23 | PTOTSP ---
Speech Therapy Evaluation:
Pt presents with grossly functional oropharyngeal swallow. No overt s/sx of aspiration or signs concerning for pharyngeal dysphagia. Risk of aspiration elevated given TME, impulsive feeding behaviors, and GI hx (GERD). Pt passed 3oz swallow screen.
CXR without PNA, pt afebrile, and pt on room air.
Recommend:
1. Initiate IDDSI Level 7 (Regular solids) and thin liquids
2. Medications as tolerated
3. Close supervision with intake
4. Aspiration and reflux precautions
5. OB NURSE to follow to monitor tolerance of diet s/p initiation, likely brief
[2024-08-28 17:13] LABS: Blood Urea Nitrogen 26 mg/dl (9-20); Calcium 8.9 mg/dl (8.4-10.2); Carbon Dioxide 24 mmol/L (22-30); Chloride 113 mmol/L (98-107); Estimated Creatinine Clearance > 125 ml/min; Glucose 174 mg/dl (70-99); Magnesium 2.1 mg/dl (1.6-2.3); Phosphorus 2.5 mg/dl (2.5-4.5); Potassium 3.5 mmol/L (3.5-5.1); Sodium 145 mmol/L (135-145); eGFR > 60.00
--- NOTE | 2024-08-28 17:35 | PTCARENOTE ---
Pt drinking water and eating water ice. Otherwise, poor appetite. Remains tremulous, forgetful and impulsive. Bed alarm on. All other assessments unchanged.
[2024-08-28] MEDS: LOVENOX 40 MG SC (18:37)
[2024-08-28] MEDS: SUBUTEX 4 MG SL (18:38)
--- NOTE | 2024-08-28 19:00 | PTCARENOTE ---
pulled vitals into flowsheet from previous shift, can only verify accuracy of vitals starting at 1900 for shift.
--- NOTE | 2024-08-28 20:30 | PTCARENOTE ---
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 B/L IV patent. POC discussed w/pt- call portillo in reach, bed alarm on.
[2024-08-28] MEDS: ATIVAN 0.5 MG IV (20:33)
[2024-08-28] MEDS: NSS (PRESERVATIVE FREE) 0.125 ML IV (20:33)
[2024-08-28] MEDS: TORADOL 10 MG IV (23:59)
[2024-08-29] VITALS (17 sets, daily range): BP systolic 136–187; BP diastolic 66–111; PULSE 88; O2SAT 98; BMI 20.6
--- NOTE | 2024-08-29 | PTCARENOTE ---
pt found to have pulled out LAC IV with c/o it was hurting him. RA IV present and patent. prn toradol for pain. no further changes in assessment.
[2024-08-29] MEDS: ATIVAN 0.5 MG IV ×2 (01:57→22:51)
[2024-08-29] MEDS: NSS (PRESERVATIVE FREE) 0.125 ML IV (01:57)
[2024-08-29 05:29] LABS: Hemoglobin 12.7 g/dL (13.0-18.0); Mean Corp Hgb Conc. 35.3 g/dL (33.0-37.0); Mean Corpuscular Hgb 33.2 pg (27.0-31.0); Mean Corpuscular Volume 94.2 fL (80.0-94.0); Mean Platelet Volume 12.2 fL (7.4-10.4); Platelet Count 163 10^3/uL (130-400); Red Blood Cell Count 3.82 10^6/uL (4.70-6.10); Red Cell Dist. Width 13.2 % (11.5-14.5); White Blood Cell Count 28.6 10^3/uL (4.8-10.8)
[2024-08-29] MEDS: TORADOL 10 MG IV ×3 (05:55→18:12)
[2024-08-29 06:14] LABS: ALT (SGPT) 30 U/L (0-50); AST (SGOT) 37 U/L (17-59); Albumin 3.6 g/dl (3.5-5.0); Alkaline Phosphatase 101 U/L (38-126); Blood Urea Nitrogen 19 mg/dl (9-20); Calcium 8.8 mg/dl (8.4-10.2); Carbon Dioxide 24 mmol/L (22-30); Chloride 113 mmol/L (98-107); Estimated Creatinine Clearance > 125 ml/min; Glucose 113 mg/dl (70-99); Phosphorus 2.7 mg/dl (2.5-4.5); Sodium 141 mmol/L (135-145); Total Bilirubin 0.8 mg/dl (0.2-1.3); Total Protein 6.8 g/dl (6.3-8.2); eGFR > 60.00
[2024-08-29] MEDS: SUBUTEX 16 MG SL (07:36)
[2024-08-29] MEDS: SUBUTEX 4 MG SL (07:36)
[2024-08-29] MEDS: MIRALAX TUBE (07:37)
[2024-08-29] MEDS: CATAPRES 0.1 MG PO ×3 (07:37→20:57)
[2024-08-29] MEDS: NORVASC 10 MG PO (07:37)
[2024-08-29] MEDS: ZESTRIL 40 MG PO (07:37)
--- NOTE | 2024-08-29 08:23 | PN.CDI ---
CDI
- -
CDI:
Physician Documentation Request
Admit Date: 08/26/24 22:06
Dear Doctor Stew,
Please review the following and provide your response in the progress notes.
Clinical Indicators:
Pt admitted with TME 2/2 opioid withdrawal /SIRS
Documented per 08/27 & 08/28,' Pulmonary congestion on chest x-ray....No known history of cardiac disease including CAD/CHF....'
Customer Services Manager progress note 08/28,' #Mild acute pulmonary vascular congestion with elevated proBNP (6700 on 08/27/2024)...'
ECHO 08/27, ' Left ventricular ejection fraction is 73% ...'
Please provide a diagnosis for the above findings:
Acute noncardiogenic pulmonary edema
Acute Pulmonary Edema
Other ( please specify)
Use of terms such as suspected, likely, concern for, or probable (associated with a specific diagnosis that is being evaluated, monitored, or treated as if it exists) are acceptable and can be coded in the inpatient setting, when documented at the
time of discharge.
Thank you,
Kaylen Wilhelm RN
CDI Specialist
[place] Text
Please use your independent medical judgment in providing your response.
--- NOTE | 2024-08-29 09:00 | PTCARENOTE ---
Received pt @ change of shift. Pt. drowsy, awakens to verbal stim; ox3; forgetful/impulsive. COWS- 5; medicated w standing meds- see JUN. SR on monitor. SpO2 96% on RA. Cont BM; loose BM this AM in BR. Inc of bladder; #25CC in place draining
yellow urine. #20 R AC patent, dressing c/d/i. Bed alarm active. Pt. instructed on how to report care concerns and call lindsey w in reach.
--- NOTE | 2024-08-29 14:47 | CM ---
Opioid use with withdrawal. Restraints off, subutex. Therapy working with patient. No definitive recommendation as yet. Discharge POC: TBD.
--- NOTE | 2024-08-29 15:01 | W.PN.HOSP.TC ---
Today's Communication/Plan
-
Off Precedex on Subutex
Given severe opiate use disorder precipitated withdrawal requiring ICU care, patient likely appropriate for inpatient rehab
Case management consultation for discharge planning
Monitor off antibiotics following temperature curve and WBC.
Assessment / Plan
Assessment / Plan
Impression:
Toxic metabolic encephalopathy secondary to opioid withdrawal.
SIRS secondary to above.
Concern for sepsis (febrile on admission) ruled out
Interstitial infiltrate
Conditions prior to admission,
Opiate use disorder (reported IV fentanyl)
Hepatitis C untreated.
Essential hypertension
Plan:
Toxic metabolic encephalopathy secondary to opioid withdrawal.
Polysubstance abuse suspected.
IVDA Fentanyl
Urine drug screen positive for opiates, buprenorphine, fentanyl, benzodiazepine, marijuana
Transferred to ICU.
Initiated on opioid withdrawal protocol with Subutex
Required and now off Precedex drip with resolved toxic metabolic encephalopathy.
Cognitive status back to brief
Aggressive hydration
Concern for sepsis versus SIRS secondary to opioid withdrawal
IVDA
Fever resolved
Chest x-ray with mild pulmonary congestion without focal infiltrate.
UA unremarkable.
Blood cultures NGTD
Per ID hold off of Atb
Pulmonary congestion on chest x-ray.
Suspected noncardiogenic pulmonary edema possibly in the settings of IVDA drug use. No evidence for CHF.
Echo with preserved biventricular function no significant valvular abnormality
Stable respiratory status
EKG without ischemia
No known history of cardiac disease including CAD/CHF
Hepatitis C reinfection, untreated
Hyponatremia likely secondary to a free water deficit
Improved
Essential hypertension
Preadmission regimen including amlodipine and BenzePrO holding acutely
Insomnia
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
Anticipated Discharge: 24 - 48 hours
Subjective/Interval History
-
Date of Service: August 29, 2024
Objective Data
-
Labs:
Laboratory Results
08/29/24
05:18
WBC 28.6 H
Hgb 12.7 L
Hct 36.0 L
Plt Count 163
Sodium 141
Potassium 4.0
Chloride 113 H
Carbon Dioxide 24
BUN 19
Creatinine 0.5 L
Glucose 113 H
Calcium 8.8
Total Bilirubin 0.8
AST 37
ALT 30
Alkaline Phosphatase 101
Vital Signs:
Vital Signs
Temp Pulse Resp BP Pulse Ox
98.2 F 74 26 169/108 100
08/29/24 11:35 08/29/24 07:37 08/29/24 06:07 08/29/24 07:37 08/29/24 06:07
I&O
08/28/24 08/29/24 08/30/24
06:59 06:59 06:59
Intake Total 1212.3 / 1226.1 2042.6 / 2042.6
Output Total 895 / 895 1745 / 1745
Balance 317.3 / 331.1 297.6 / 297.6
Physical Exam
-
General: Well Developed, No Apparent Distress and Sweats
HEENT: Normocephalic, Atraumatic and Moist Mucous Membranes
Respiratory: Clear to Auscultation
Cardiac: Regular Rhythm and S1/S2; Negative Murmur, Rub or Gallop
GI: Soft, Nontender, Nondistended and Normal Bowel Sounds; Negative Organomegaly
Rectal: Deferred by Provider
Musculoskeletal: No Clubbing, No Cyanosis and No Edema
Skin: Negative Rash
Neuro: Sedated and Nonfocal/Grossly Intact
[2024-08-29] MEDS: DILAUDID 1 MG IV ×2 (15:03→21:04)
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
[2024-08-29] MEDS: TRANDATE 5 MG IV (16:10)
[2024-08-29] MEDS: PREVNAR 20 0.5 ML IM (16:11)
--- NOTE | 2024-08-29 17:14 | PTCARENOTE ---
Report given to IMU RN and pt. transported via bed on manager chemical w belongings and to [phone] [id number]. No further needs from this RN.
[2024-08-29] MEDS: LOVENOX 40 MG SC (18:12)
[2024-08-29] MEDS: ZANAFLEX 2 MG PO (18:13)
--- NOTE | 2024-08-29 18:23 | PTCARENOTE ---
Received from ICU, monitors intact. SR/ PACs BP 160/100. PO diet ordered. Currently c/o 610 back pain, COWS = 5. IV Toradol and Zanaflex given. No other complaint . at bedside.
--- NOTE | 2024-08-29 21:39 | PTCARENOTE ---
Assumed care of pt from brandon RN, Pt is aaox3. COWS 6, Dilaudid administered per Rx (see MAR). Sinus arrhythmia on monitor. Pt is satting 98% on RA. condom cath intact draining yellow urine. Hygiene complete. Pt resting in bed with bed alarm on
and call portillo in reach.
[2024-08-29] MEDS: MELATONIN 5 MG PO (23:11)
[2024-08-30] VITALS (16 sets, daily range): BP systolic 143–174; BP diastolic 80–132; PULSE 83–89; O2SAT 95
[2024-08-30] MEDS: ZANAFLEX 2 MG PO ×3 (02:42→15:13)
[2024-08-30 05:51] LABS: % Basophils 0.3 % (0-2); % Eosinophils 1.8 % (0-6); % Immature Granulocytes 0.9 % (0-0.5); % Lymphocytes 21.6 % (20.5-51.1); % Monocytes 12.3 % (1.7-9.3); % Neutrophils 63.1 % (42.2-75.2); Absolute Basophils 0.1 10^3/uL (0-0.2); Absolute Eosinophils 0.4 10^3/uL (0-0.7); Absolute Immature Granulocytes 0.2 10^3/uL (0-0.05); Absolute Lymphocytes 4.6 10^3/uL (1.2-3.4); Absolute Monocytes 2.6 10^3/uL (0.1-0.6); Absolute Neutrophils 13.3 10^3/uL (1.4-6.5); Hematocrit 36.8 % (39.0-52.0); Hemoglobin 12.7 g/dL (13.0-18.0); Mean Corp Hgb Conc. 34.5 g/dL (33.0-37.0); Mean Corpuscular Hgb 32.9 pg (27.0-31.0); Mean Corpuscular Volume 95.3 fL (80.0-94.0); Nucleated Red Blood Cells % 0 % (-); Red Blood Cell Count 3.86 10^6/uL (4.70-6.10); Red Cell Dist. Width 13.2 % (11.5-14.5); White Blood Cell Count 21.1 10^3/uL (4.8-10.8)
[2024-08-30 06:13] LABS: ALT (SGPT) 30 U/L (0-50); AST (SGOT) 32 U/L (17-59); Albumin 3.3 g/dl (3.5-5.0); Alkaline Phosphatase 103 U/L (38-126); Blood Urea Nitrogen 15 mg/dl (9-20); Calcium 8.5 mg/dl (8.4-10.2); Carbon Dioxide 25 mmol/L (22-30); Chloride 109 mmol/L (98-107); Estimated Creatinine Clearance > 125 ml/min; Glucose 119 mg/dl (70-99); Potassium 4.2 mmol/L (3.5-5.1); Sodium 137 mmol/L (135-145); Total Bilirubin 0.7 mg/dl (0.2-1.3); Total Protein 6.5 g/dl (6.3-8.2); eGFR > 60.00
[2024-08-30] MEDS: MIRALAX 17 GRAMS TUBE (08:40)
[2024-08-30] MEDS: NORVASC 10 MG PO (08:45)
[2024-08-30] MEDS: ZESTRIL 40 MG PO (08:45)
[2024-08-30] MEDS: TORADOL 10 MG IV ×2 (08:48→15:09)
[2024-08-30] MEDS: SUBUTEX 16 MG SL (08:48)
[2024-08-30] MEDS: SUBUTEX 4 MG SL (08:48)
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
[2024-08-30] MEDS: DILAUDID 1 MG IV (13:18)
--- NOTE | 2024-08-30 15:19 | W.PN.HOSP.TC ---
Today's Communication/Plan
-
Cognitively improved, although in discussions has low insight on his severe addiction and mainly concerned about his chronic pain. He is not interested in inpatient drug rehab. Other option would be
[facility] with transition to Subutex maintenance as outpatient.
His Subutex dose
Assessment / Plan
Assessment / Plan
Impression:
Toxic metabolic encephalopathy secondary to opioid withdrawal.
SIRS secondary to above.
Concern for sepsis (febrile on admission) ruled out
Interstitial infiltrate
Conditions prior to admission,
Opiate use disorder (reported IV fentanyl)
Hepatitis C untreated.
Essential hypertension
Plan:
Toxic metabolic encephalopathy secondary to opioid withdrawal.
Polysubstance abuse suspected.
IVDA Fentanyl
Urine drug screen positive for opiates, buprenorphine, fentanyl, benzodiazepine, marijuana
Required ICU care
Initiated on opioid withdrawal protocol with Subutex
Required and now off Precedex drip with resolved toxic metabolic encephalopathy.
Cognitively improved, although in discussions has low insight on his severe addiction and mainly concerned about his chronic pain. He is not interested in inpatient drug rehab. Other option would be
[facility] with transition to Subutex maintenance as outpatient.
His Subutex dose now titrated and established at 20 mg daily.
Wean off IV lorazepam
Continue clonidine taper
Continue Zanaflex
Concern for sepsis versus SIRS secondary to opioid withdrawal
IVDA
Fever resolved
Chest x-ray with mild pulmonary congestion without focal infiltrate.
UA unremarkable.
Blood cultures NGTD
Per ID hold off of Atb
Remains afebrile with WBC trending down
Pulmonary congestion on chest x-ray.
Suspected noncardiogenic pulmonary edema possibly in the settings of IVDA drug use. No evidence for CHF.
Echo with preserved biventricular function no significant valvular abnormality
Stable respiratory status
EKG without ischemia
No known history of cardiac disease including CAD/CHF
Hepatitis C reinfection, untreated
Hyponatremia likely secondary to a free water deficit
Improved
Essential hypertension
Preadmission regimen including amlodipine and BenzePrO holding acutely
Insomnia
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
Anticipated Discharge: 24 - 48 hours
Subjective/Interval History
-
Date of Service: August 30, 2024
Objective Data
-
Labs:
Laboratory Results
08/30/24 08/30/24
04:13 05:24
WBC Cancelled 21.1 H
Hgb Cancelled 12.7 L
Hct Cancelled 36.8 L
Plt Count Cancelled
Sodium Cancelled 137
Potassium Cancelled 4.2
Chloride Cancelled 109 H
Carbon Dioxide Cancelled 25
BUN Cancelled 15
Creatinine Cancelled 0.5 L
Glucose Cancelled 119 H
Calcium Cancelled 8.5
Total Bilirubin Cancelled 0.7
AST Cancelled 32
ALT Cancelled 30
Alkaline Phosphatase Cancelled 103
Vital Signs:
Vital Signs
Temp Pulse Resp BP Pulse Ox
98.9 F 85 18 169/87 94
08/30/24 15:06 08/30/24 14:16 08/30/24 14:16 08/30/24 14:16 08/30/24 12:22
I&O
08/29/24 08/30/24 08/31/24
06:59 06:59 06:59
Intake Total 2042.6 / 2042.6 2200 / 2200 240 / 240
Output Total 1745 / 1745 1550 / 1550 600 / 600
Balance 297.6 / 297.6 650 / 650 -360 / -360
Physical Exam
-
General: Well Developed, No Apparent Distress and Sweats
HEENT: Normocephalic, Atraumatic and Moist Mucous Membranes
Respiratory: Clear to Auscultation
Cardiac: Regular Rhythm and S1/S2; Negative Murmur, Rub or Gallop
GI: Soft, Nontender, Nondistended and Normal Bowel Sounds; Negative Organomegaly
Rectal: Deferred by Provider
Musculoskeletal: No Clubbing, No Cyanosis and No Edema
Skin: Negative Rash
Neuro: Sedated and Nonfocal/Grossly Intact
[2024-08-30 15:40] LABS: HIV Combo Negative (Negative)
--- NOTE | 2024-08-30 17:20 | CM ---
Patient with Dx Toxic metabolic encephalopathy secondary to opioid withdrawal, SIRS, sepsis. Room air. Receiving Subutex, receiving IV Dilaudid. PT recommends Home PT vs SNF. OT recommends HH.
Spoke with VIJAY Prasad (ph [phone]); she met with the patient and offered inpatient drug rehab however he declined stating he is having knee surgery on the . She will set him up with a suboxone referral through [facility].
Spoke with patient; he thinks he will be having knee surgery on 09/04, however is aware that he may not get clearance from Ortho for knee surgery due to narcotic abuse. Even if no surgery is declines to do the drug rehab, and also to do HH for PT/OT,
saying he cannot afford to miss work, he will do the outpatient subaoxone program only.
Plan follow up with VIJAY to confirm patient is setup with outpatient suboxone through [facility].
Plan possibly offer patient script for outpatient PT/OT.
Plan home.
[2024-08-30] MEDS: TRANDATE 5 MG IV (17:34)
[2024-08-30] MEDS: LOVENOX 40 MG SC (17:37)
--- NOTE | 2024-08-30 17:46 | PTCARENOTE ---
Patient has been compliant with plan of care today, COWS 7. Pain managed as per doctors orders. Patient verbalizing frustration with hospital stay, stating he cant wait to leave. Patient educated about diagnosis and rational for hospital stay.
eating well, continent of bladder, washed himself up today.
--- NOTE | 2024-08-30 18:30 | PTCARENOTE ---
Patients son arrived to unit and patient is stating that he wants to leave AMA. Discussed risks involved in leaving AMA with patient. Notified Dr. Van and Dr. Felix.
--- NOTE | 2024-08-30 18:43 | W.PN.UPDATE ---
Update Note
Progress Note Update
Informed by RN that patient requesting to leave AMA.
Discussed with attending physician Dr. Van, who stated that the patient is competent to make his own decision.
Patient is awake, alert and orientated.
He confirmed his desire to leave AMA.
Informed patient of the danger of leaving AMA including drug withdrawal, intoxication if continue to use, and even (from severe withdrawal or intoxication).
AMA form signed by patient.
--- NOTE | 2024-08-30 18:43 | PTCARENOTE ---
Dr. Felix came to room and after discussion regarding safety risks with leaving the hospital, patient left AMA. Patient is able to answer orientation questions appropriately and stated his diagnosis. Patient left with his son.
== END 2024-08-30 19:00 | disposition left against medical advice (07) | DRG 894 ==
LOC: IMU 22:06
PROVIDERS: Physician Assistant Medical; ADMITTING PHYSICIAN Internal Medicine; ATTENDING PHYSICIAN Internal Medicine; CONSULT PHYSICIAN Internal Medicine Critical Care Medicine; EMERGENCY PHYSICIAN Emergency Medicine; FAMILY PHYSICIAN Family Medicine; OTHER PHYSICIAN Internal Medicine Infectious Disease
PROC: 3E0234Z Introduction of Serum, Toxoid and Vaccine into Muscle, Percutaneous Approach (ICD-10-PCS; 2024-08-29)
DX: F11.23 Opioid dependence with withdrawal (principal); G92.8 Other toxic encephalopathy; E87.0 Hyperosmolality and hypernatremia; J81.1 Chronic pulmonary edema; F17.200 Nicotine dependence, unspecified, uncomplicated; G47.00 Insomnia, unspecified; Z23 Encounter for immunization; Z53.29 Procedure and treatment not carried out because of patient's decision for other reasons; Z78.1 Physical restraint status
CPT/HCPCS: 70450; 71046; 80048; 80053; 80306; 80307; 81003; 81015; 82140; 82248; 82962; 83605; 83735; 83880; 84100; 85025; 85027; 85610; 85730; 87040; 87070; 87389; 90677; 92610; 93005; 93306; 97116; 97163; 97167; 97535; 99285; 99406; G0009

== ENCOUNTER 2024-11-19 12:47 | Emergency (ER) | payer BC, SELFPAY ==
[2024-11-19 12:49] VITALS: BP 149/85
--- NOTE | 2024-11-19 13:46 | ED.GENMED ---
History of Present Illness
General
Chief Complaint: Numbness
Time Seen by Provider: 11/19/24 13:33
History of Present Illness
History of Present Illness:
59-year-old male presents the emergency department for evaluation of left arm paresthesias and hand weakness that began upon awakening at 0400 today. He went to bed at approximately 10 PM last night with no symptoms. Symptoms seem to have improved
slightly throughout the day today but he still feels as though he cannot use the left hand appropriately. Denies any additional neurologic symptoms. No headache, vision changes, chest pain, or shortness of breath. No prior history of stroke. Was
taking baby aspirin preventatively after left total knee replacement up until 2 days ago, took a full dose aspirin this morning when symptoms began.
Review of Systems
Review of Systems
Allergies reviewed?: Yes
All Other Systems: ROS reviewed and negative except as documented in HPI and ROS
Phy Exam
Physical Exam
Physical Exam:
GEN: Well appearing, NAD, WDWN
HEENT: Oral mucosa moist, no scleral icterus, no nasal congestion
Cardiac: Regular rate
Lung: No respiratory distress, no tachypnea
MSK: No gross deformity or injuries
Skin: Good color, no pallor or jaundice, no rashes
Neuro: AO x3; CN II-XII grossly intact. No limb drift x 4 however the patient exhibits a left wrist drop and decreased tactile sensation to the dorsum of the left hand; BLE strength 5/5 in all pettit, sensation intact and symmetric. No limb
ataxia, visual pettit intact and symmetric bilaterally
Psych: Calm, cooperative
Course
Orders/Labs/Results
Orders:
Orders
11/19/24 13:45
Electrocardiogram (*1) Urgent
Reason for Study: TIA/Stroke
EKG- Treatment ONCE
11/19/24 13:46
Consult Neurology [NEUROLOGY CONSULT] Urgent
Consulting Provider: Donald Monique
Was physician already notified: Yes
11/19/24 14:17
CT Head W/o Iv Contrast Urgent
Comment:
Reason For Exam: LUE weakness
11/19/24 14:53
Add On- LAB Routine
Tests Added?: folate, ferritin, TSH, free t4, B12, lipid panel, hgb A1C
11/19/24 15:00
Cardiovascular Evaluation Urgent
Complete Blood Count/With Diff Urgent
Comprehensive Metabolic Panel Urgent
Ferritin Urgent
Comment: ADD ON
Folate Urgent
Comment: ADD ON
Free T4 Urgent
Comment: ADD ON
Glycohemoglobin (HgbA1c) Urgent
TSH Urgent
Comment: ADD ON
Vitamin B12 Urgent
Comment: ADD ON
Abnormal Lab Results
11/19/24
15:00
WBC 12.5 H 10^3/uL
(4.8-10.8)
RBC 3.53 L 10^6/uL
(4.70-6.10)
Hgb 11.3 L g/dL
(13.0-18.0)
Hct 33.8 L %
(39.0-52.0)
MCV 95.8 H fL
(80.0-94.0)
MCH 32.0 H pg
(27.0-31.0)
MPV 10.9 H fL
(7.4-10.4)
Absolute Neuts (auto) 8.1 H 10^3/uL
(1.4-6.5)
Absolute Monos (auto) 1.5 H 10^3/uL
(0.1-0.6)
Lymphocytes % 19.7 L %
(20.5-51.1)
Monocytes % 11.7 H %
(1.7-9.3)
Glucose 123 H mg/dl
(70-99)
11/19/24 15:00
11/19/24 15:00
Vital Signs
Initial and Last Documented VS:
Initial Vital Signs
Temp Pulse Resp BP Pulse Ox
97.9 F 48 18 149/85 99
11/19/24 12:49 11/19/24 12:49 11/19/24 12:49 11/19/24 12:49 11/19/24 12:49
Last Documented Vital Signs
Temp Pulse Resp BP Pulse Ox
97.9 F 44 10 145/83 99
11/19/24 12:49 11/19/24 15:45 11/19/24 15:45 11/19/24 15:16 11/19/24 15:30
Procedures
IV Access
Indication: RN unable to obtain and Physician skill needed
Performed by:: Devon Morales PA-C
Site:: R upper arm
Gauge:: 20g
Ultrasound Guidance: Yes
MDM/Problems Addressed
MDM/Problems Addressed:
Physical exam and other clinical findings consistent with radial nerve palsy secondary to ingestion of opiates with Ambien last night and sleeping in a abnormal position. Doubt stroke. Will refer to PT as an outpatient and patient is given a volar
wrist splint
*Pulse Oximetry
SaO2: 99
Oxygen Mode of Delivery: Room air
Patient hypoxic: no
*Critical Care Note
Total Time (30-74mins, 75-104mins- exclusive of procedures): Not Applicable
ED Attending Note
-
Portions of this chart may have been created with voice recognition software.� Occasional wrong word or��sound alike� substitutions may have occurred due to the inherent limitations of voice recognition software.
Discharge Plan
Departure
Patient Disposition: Home (Routine Discharge)
Date of Disposition: 11/19/24
Time of Disposition: 15:40
Patient with high blood pressure during this ER visit?: No
Discharge Problem:
Acute radial nerve palsy of left upper extremity
Instructions: Peripheral Neuropathy (DC)
Prescriptions:
No Action
sumatriptan succinate 100 mg tablet
100 mg PO DAILYPRN PRN (Reason: Migraine Headache)
amlodipine 10 mg tablet
10 mg PO DAILY
zolpidem 10 mg tablet
10 mg PO HSPRN PRN (Reason: Insomnia)
benazepril 40 mg tablet
40 mg PO DAILY
Referrals:
Kamryn Arreguin DO [Family Provider, Family Practice]
Activity Restrictions/Additional Instructions:
Please consider going to physical therapy to improve wrist function and range of motion
Interventions
Interventions:
*Risk Screen - Suicide Last Done: 11/19/24 12:49
*General Assessment Last Done: 11/19/24 12:49
*Neglect/Abuse Screening Last Done: 11/19/24 12:49
*ED- Fall Risk Assessment Last Done: 11/19/24 15:51
*ED COVID-19 Vaccine History Last Done: 11/19/24 12:49
*Nursing Disposition Last Done: 11/19/24 15:51
ED- Neurological Assessment Last Done: 11/19/24 14:16
Discharge Date and Time
Discharge Date/Time: 11/19/24 15:57
Print Language: YORUBA
--- NOTE | 2024-11-19 13:54 | CON.NEURO ---
Addendum entered and electronically signed by Donald Monique MD 11/19/24 15:34:
Studies reviewed.
I have personally examined the patient. I reviewed and agree with the AUTOMATIC [employer] MACHINE MECHANIC's Note.
My addenda:
Awake, alert, interactive. No acute distress.
Speech intact.
Follows 2-step requests w/o difficulty. No tremor.
Extra-ocular movements grossly intact.
Facial movements full and symmetric. Hearing intact to normal conversational volume.
Normal UE movements bilaterally.
Neck: full ROM.
Chest: no dyspnea
Heart: no JVD
Ext: (-) Clubbing, (-) Cyanosis, (-) Edema
IMPRESSIONS/RECOMMENDATIONS:
Abrupt onset of left arm weakness. Specifically left wrist weakness upon awakening. The patient has no issues with other extremities and has not had experience similar to this in the past
Diagnosis is left radial neuropathy especially based on examination demonstrating isolated wrist extension weakness with out weakness and other nerve function
Physical therapy and Occupational Therapy to support the patient's left radial neuropathy
Would pursue CT of head to ensure that an additional etiology is not present
No indication for change in therapy otherwise
D/W patient
All questions answered.
Will continue to follow patient as needed.
Original Note:
Documented by User: Barbie Davis NP 11/19/24 15:14
Neuro Assessment/Plan
Assessment
Patient is a right-handed 59-year-old male with past medical history of hypertension, hepatitis C and IV drug abuse presented to [facility] on 11/19/2024 for evaluation of left arm paresthesias and hand weakness.
Plan
Impression: abrupt onset of numbness and weakness of left hand most likely due to radial neuropathy
-PT/OT evaluations
-may benefit from wrist brace
-consider EMG/NCS outpatient
-check blood work for metabolic disturbances
All questions encouraged and answered, plan of care discussed with Rommel Allan and patient
Consultation
Order
Date of Consultation: 11/19/24
Requesting Provider: Devon Morales PA-C
Reason for Consult: L hand numbness and weakness
Subjective/Objective
Subjective Data
Date of Service: November 19, 2024
Patient is a right-handed 59-year-old male with past medical history of hypertension, hepatitis C and IV drug abuse presented to [facility] on 11/19/2024 for evaluation of left arm paresthesias and hand weakness that began upon awakening at 0400 today. He
went to bed at approximately 10 PM last night with no symptoms. He thinks he might have 'slept funny and has a pinched nerve.' Although denies similar symptoms prior. Denies any additional neurologic symptoms. No headache, vision changes, chest
pain, or shortness of breath. No speech or swallowing difficulties. No issues with bowel/bladder. No weakness, numbness tingling LLE or right side. No prior history of stroke. No recent trauma or falls. Was taking baby aspirin preventatively after
left total knee replacement up until 2 days ago, took a full dose aspirin this morning when symptoms began. Exam with notable left wrist drop and decreased sensation.
Objective Data
Vital Signs
Temp Pulse Resp BP Pulse Ox
97.9 F 48 18 149/85 99
11/19/24 12:49 11/19/24 12:49 11/19/24 12:49 11/19/24 12:49 11/19/24 13:46
Patient Allergies
No Known Allergies Allergy (Verified 11/19/24 12:48)
Review of Systems
-
History Source: Patient
All other systems: Reviewed and negative
Physical Exam
-
General: No Apparent Distress and Comfortable
Eyes: Unremarkable
HEENT: Normocephalic, Atraumatic and Anicteric
Neck: Full Range of Motion
Respiratory: No Dyspnea
Cardiac: No JVD
GI: Non-distended
Skin: Unremarkable
Extremities: Other (L TKA)
Psych: Unremarkable
Extended Neurological Exam
Mood & Affect: Mood Unremarkable
Attention Span & Concentration: Awake, Alert, Interactive and No Difficulty with 2 Step Request
Memory: Unremarkable
Tremor: Hand Tremor Absent and Head Tremor Absent
Speech: Quality Unremarkable, Quantity Unremarkable and Rate of Production Unremarkable
Cranial Nerve II: Left Eye: Visual Gaitan Intact
Cranial Nerve II: Right Eye: Visual Gaitan Intact
Cranial Nerves III, IV, : Extraocular Movement: Extraocular Movement Full in all Directions
Cranial Nerve VII: Facial Symmetry: Normal Facial Symmetry
Cranial Nerve VIII: Hearing: Unremarkable Hearing to Normal Conversational Volume
Cranial Nerves IX, X: Palate Movement: Palate Elevation Symmetric
Cranial Nerve XI: Shoulder Shrug: Unremarkable
Muscle Strength, Overall: Reduced (L hand weakness)
Pronator Drift: No Drift in Upper Extremities and No Drift in Lower Extremities
Touch Sensation: Unremarkable and Double Simultaneous Stimulation Unremarkable
Coordination: [id number] Testing Unremarkable and Reaches for Objects without Difficulty
Data Reviewed
-
CT Head: Report Reviewed and Image Reviewed
Labs: Pending
Reviewed with: Physician, Physician Taker Off Braker Machine, Patient and Family
Old Records: Summarized
Medications
-
Home Medications
�Medication �Instructions �Recorded
amlodipine 10 mg tablet 10 mg PO DAILY Blood Pressure 08/26/24
benazepril 40 mg tablet 40 mg PO DAILY Blood Pressure 08/26/24
sumatriptan succinate 100 mg tablet 100 mg PO DAILYPRN PRN Migraine 08/26/24
Headache
zolpidem 10 mg tablet 10 mg PO HSPRN PRN Insomnia 08/26/24

Documented by User: Donald Monique MD 11/19/24 15:26
Neuro Assessment/Plan
Plan
Impression: abrupt onset of numbness and weakness of left hand most likely due to radial neuropathy
-PT/OT evaluations
-may benefit from wrist brace
-consider EMG/NCS outpatient
-check blood work for metabolic disturbances
All questions encouraged and answered, plan of care discussed with Dr. Monique, PA and patient
[2024-11-19 15:16] VITALS: BP 145/83
[2024-11-19 15:21] LABS: ALT (SGPT) 17 U/L (0-50); AST (SGOT) 30 U/L (17-59); Albumin 3.5 g/dl (3.5-5.0); Alkaline Phosphatase 90 U/L (38-126); Blood Urea Nitrogen 17 mg/dl (9-20); Calcium 8.8 mg/dl (8.4-10.2); Carbon Dioxide 30 mmol/L (22-30); Chloride 104 mmol/L (98-107); Glucose 123 mg/dl (70-99); HDL Cholesterol 39 mg/dl; LDL Cholesterol, Calculated 67 mg/dl; Potassium 3.7 mmol/L (3.5-5.1); Sodium 136 mmol/L (135-145); Total Protein 7.0 g/dl (6.3-8.2); Very Low Density Lipoprotein 15 mg/dl (0-30); eGFR > 60.00
[2024-11-19 15:31] LABS: Hematocrit 33.8 % (39.0-52.0); Hemoglobin 11.3 g/dL (13.0-18.0); Mean Corp Hgb Conc. 33.4 g/dL (33.0-37.0); Mean Corpuscular Volume 95.8 fL (80.0-94.0); Nucleated Red Blood Cells % 0 % (-); Platelet Count 336 10^3/uL (130-400); Red Cell Dist. Width 13.1 % (11.5-14.5)
[2024-11-19 16:06] LABS: TSH 1.14 uIU/ml (0.47-4.68)
[2024-11-19 16:10] LABS: Ferritin 224.0 ng/ml (17.9-464.0)
[2024-11-19 16:42] LABS: Folate 14.2 ng/ml (2.76-20); Vitamin B12 651 pg/ml (239-931)
[2024-11-20 06:57] LABS: Glycohemoglobin (HgbA1c) 5.8 % (4.0-5.6)
== END 2024-11-19 15:57 | disposition home or self-care (01) ==
LOC: EMR 12:47
PROVIDERS: Physician Assistant; CONSULT PHYSICIAN Psychiatry & Neurology Neurology; EMERGENCY PHYSICIAN Student in an Organized Health Care Education/Training Program; FAMILY PHYSICIAN Family Medicine
DX: G56.32 Lesion of radial nerve, left upper limb (principal); I10 Essential (primary) hypertension; B19.20 Unspecified viral hepatitis C without hepatic coma; Z96.652 Presence of left artificial knee joint
CPT/HCPCS: 99284; 29125; 70450; 80053; 80061; 82607; 82728; 82746; 83036; 84439; 84443; 85025; 93005